=== PATIENT | male | born 1995 | race Hispanic/Latino ===

== ENCOUNTER 2021-12-30 23:10 | Emergency (ER) | payer OTHER ==
[2021-12-30] MEDS ORDERED: Lorazepam 1 MG TAB ONE (23:47)
[2021-12-31 00:25] LABS: ALT (SGPT) 46 U/L (8-55); AST (SGOT) 30 U/L (5-34); Albumin 4.3 g/dL (3.5-5.0); Alkaline Phosphatase 43 U/L (40-110); Anion Gap 16 mmol/L (10-20); BUN (Urea Nitrogen) 15 mg/dL (8.9-20.6); Bilirubin, Total 0.4 mg/dL (0.2-1.2); CK (CPK) 266 U/L (30-200); Calc. Creatinine Clearance 0 mL/min (70-130); Calcium 9.1 mg/dL (7.8-10.44); Carbon Dioxide 21 mmol/L (22-29); Chloride 102 mmol/L (98-107); Estimated GFR 83; Globulin 3.1 g/dL (2.4-3.5); Glucose 155 mg/dL (70-105); Potassium 3.3 mmol/L (3.5-5.1); Protein, Total 7.4 g/dL (6.0-8.3); Sodium 136 mmol/L (136-145)
[2021-12-31 00:41] LABS: #Basophils 0.1 thou/uL (0.0-0.2); #Eosinphils 0.1 thou/uL (0.0-0.7); #Lymphocytes 2.4 thou/uL (1.20-3.40); #Monocytes 0.6 thou/uL (0.11-0.59); #Neutrophils 6.3 thou/uL (1.40-6.50); %Basophils 1.1 % (0.0-1.0); %Eosinophils 1.4 % (0.0-10.0); %Lymphocytes 25.2 % (21.0-51.0); %Monocytes 6.4 % (0.0-10.0); Mean Corpuscular HGB CONC 35.1 g/dL (32.0-36.0); Mean Corpuscular Hemoglobin 31.9 pg (27.0-31.0); Mean Corpuscular Volume 90.9 fL (78.0-98.0); Mean Platelet Volume 7.7 fL (7.4-10.4); Platelet Count 255 thou/uL (130-400); RBC Distribution Width 11.8 % (11.5-14.5); Red Blood Cell (RBC) Count 4.69 mill/uL (4.70-6.10); White Blood Cell (WBC) Count 9.5 thou/uL (4.8-10.8)
== END 2021-12-31 01:11 | disposition home or self-care (01) ==
LOC: ERS 23:10
DX: F12.90 Cannabis use, unspecified, uncomplicated (principal)
CPT/HCPCS: 80053; 82550; 85025; 93005

== ENCOUNTER 2022-04-26 10:21 | Day surgery (SDC) | payer OTHER ==
[2022-04-24 15:44] VITALS: BMI 34.8
[2022-04-26] MEDS ORDERED: HYDROmorphone 0.5 MG/0.5 ML SYRINGE ONE (11:25)
[2022-04-26] MEDS ORDERED: Dexmedetomidine 200 MCG/2 ML VIAL ONE (11:25)
[2022-04-26] MEDS ORDERED: FENTANYL 50 MCG/ML 1 ML VIAL ONE (11:25)
[2022-04-26] MEDS ORDERED: Midazolam HCl 2 mg/2 ml Vial ONE (11:25)
[2022-04-26] MEDS ORDERED: Meperidine HCl/PF 25 MG/ML VIAL ONE (11:26)
[2022-04-26] MEDS ORDERED: Bupivacaine 0.25% HCL 30 ML VIAL ONE (11:29)
[2022-04-26] MEDS ORDERED: Bacitracin Zinc Ointment 30 gm TUBE ONE (11:29)
[2022-04-26] MEDS ORDERED: CEFAZOLIN 2 GM VIAL ONE (11:36)
[2022-04-26] MEDS ORDERED: Sodium Chloride 0.9% 100 ML ONE (11:36)
[2022-04-26] MEDS ORDERED: Dexamethasone 20 MG/5 ML VIAL ONE (11:46)
[2022-04-26] MEDS ORDERED: Ondansetron PF 4 MG/2 ML Vial ONE (11:46)
[2022-04-26] MEDS ORDERED: PROPOFOL 200 MG/20 ML VIAL ONE (11:46)
== END 2022-04-26 14:43 | disposition home or self-care (01) ==
LOC: SDC 10:21
PROVIDERS: ATTEND Urology
PROC: 0VTTXZZ Resection of Prepuce, External Approach (ICD-10-PCS; principal; 2022-04-26)
DX: N47.1 Phimosis (principal)
CPT/HCPCS: 88304; J1100; J1170; J2175; J2250; J2405; J2704; J3010; J3490; S0020